=== PATIENT | female | born 1955 | race African-American/Black ===

== ENCOUNTER → 2018-10-17 | Outpatient (CLI) | payer MEDICARE ==
--- NOTE | 2018-10-19 11:26 | MM ---
Reason for exam: screening (asymptomatic). Last mammogram was performed 2 years and 7 months ago. History: Patient is postmenopausal and is nulliparous. Physical Findings: A clinical breast exam by your physician is recommended on an annual basis and results should be correlated with mammographic findings. MG 3D Screening Mammo W/Cad Bilateral CC and MLO view(s) were taken. Prior study comparison: March 10, 2016, bilateral MG screening mammo w CAD. October 31, 2008, bilateral digital screening mammogram. There are scattered fibroglandular densities. There is chronic nodularity bilaterally. No significant changes when compared with prior studies. ASSESSMENT: Benign, BI-RAD 2 RECOMMENDATION: Routine screening mammogram of both breasts in 1 year.
== END | disposition home or self-care (01) ==
LOC: RADMAMWWP 14:58
PROVIDERS: ATTEND Family Medicine
DX: Z12.31 Encounter for screening mammogram for malignant neoplasm of breast (principal)
CPT/HCPCS: 77063; 77067

== ENCOUNTER 2019-01-16 09:12 | Observation (INO) | payer MEDICARE ==
--- NOTE | 2019-01-16 09:30 | ED ---
General Adult HPI - General Chief complaint: Neuro Symptoms/Deficit Stated complaint: neuro consult Time Seen by Provider: 01/16/19 09:18 Source: patient, EMS, RN notes reviewed, old records reviewed (Reviewed reports including computed tomography scan and full report from the [facility].) Mode of arrival: EMS Limitations: no limitations - History of Present Illness Initial comments: Patient is a pleasant 63-year-old female presenting to the emergency Department as a transfer from [facility]. Patient had slurred speech and problems with expressive aphasia this morning. Symptoms have near resolved and patient states she is close to normal at this point. Patient was well when she went to bed last night. No history of similar symptoms previously. denies any confusion. No weakness of her arms or legs. No difficulty walking. Kassandra did have computed tomography scan and full evaluation at [facility] and was transferred here secondary to not having neurology. - Related Data Allergies Allergy/AdvReac Type Severity Reaction Status Date / Time Penicillins Allergy Swelling Verified 01/16/19 09:26 Sulfa (Sulfonamide Allergy Anaphylaxis Verified 01/16/19 09:26 Antibiotics) Review of Systems ROS Statement: Those systems with pertinent positive or pertinent negative responses have been documented in the HPI. ROS Other: All systems not noted in ROS Statement are negative. Constitutional: Denies: fever Eyes: Denies: eye pain ENT: Denies: ear pain Respiratory: Denies: cough Cardiovascular: Denies: chest pain Endocrine: Denies: fatigue Gastrointestinal: Denies: abdominal pain Genitourinary: Denies: dysuria Musculoskeletal: Denies: back pain Skin: Denies: rash Neurological: Denies: headache, weakness, numbness, paresthesias, confusion, abnormal gait Past Medical History Past Medical History: Hypertension Additional Past Medical History / Comment(s): heart mur mur History of Any Multi-Drug Resistant Organisms: None Reported Past Surgical History: No Surgical Hx Reported Past Psychological History: No Psychological Hx Reported Smoking Status: Never smoker Past Alcohol Use History: None Reported Past Drug Use History: None Reported General Exam Limitations: no limitations General appearance: alert, in no apparent distress Head exam: Present: normocephalic Eye exam: Present: normal appearance, PERRL, EOMI. Absent: nystagmus ENT exam: Present: normal oropharynx Neck exam: Present: normal inspection Respiratory exam: Present: normal lung sounds bilaterally Cardiovascular Exam: Present: regular rate, normal rhythm, systolic murmur (Mild) GI/Abdominal exam: Present: soft. Absent: tenderness Extremities exam: Present: normal inspection Neurological exam: Present: alert, oriented X3, CN II-XII intact. Absent: motor sensory deficit Expanded Neurological exam: Present: protecting the airway Patient oriented to: Present: person, place, time Speech: Present: fluid speech Cranial nerves: EOM's Intact: Normal, Nystagmus: Normal Sensory exam: Upper Extremity Light Touch: Normal, Lower Extremity Light Touch: Normal Motor strength exam: RUE: 5, LUE: 5, RLE: 5, LLE: 5 Eye Response: (4) open spontaneously Motor Response: (6) obeys commands Verbal Response: (5) oriented Psychiatric exam: Present: normal affect, normal mood Skin exam: Present: normal color Course Vital Signs 01/16/19 09:16 Temperature 99 F Pulse Rate 75 Respiratory 18 Rate Blood Pressure 152/96 O2 Sat by Pulse 98 Oximetry Medical Decision Making - Medical Decision Making Case was discussed with Dr. Hightower, who will admit his patient. Patient is aware of plan. Disposition Clinical Impression: Transient cerebral ischemia Disposition: ADMITTED IP TO THIS HOSP Is patient prescribed a controlled substance at d/c from ED?: No Referrals: Evangelista Hightower MD [Primary Care Provider] - 1-2 days Decision Time: 09:44
[2019-01-16] MEDS ORDERED: ASPIRIN 325 MG TAB PO STA (09:44)
[2019-01-16] MEDS: SODIUM CHLORIDE 0.9% 1,000 ML IV SCH (09:56)
[2019-01-16 11:02] VITALS: BMI 27.4
[2019-01-16] MEDS ORDERED: LORazepam 0.5 MG TAB PO ONE (12:00)
--- NOTE | 2019-01-16 15:42 | US ---
EXAMINATION TYPE: US carotid duplex BILAT DATE OF EXAM: 01/16/2019 COMPARISON: NONE CLINICAL HISTORY: 63-year-old female Stenosis. Slurred speech, exam done portable. TECHNIQUE: Carotid duplex ultrasound examination. Indirect Doppler criteria is utilized. FINDINGS: EXAM MEASUREMENTS: RIGHT: Peak Systolic Velocity (PSV) cm/sec ----- Right CCA: 58.1 ----- Right ICA: 59.8 ----- Right ECA: 146.9 ICA/CCA ratio: 1.0 RIGHT: End Diastole cm/sec ----- Right CCA: 18.3 ----- Right ICA: 23.4 ----- Right ECA: 27.8 LEFT: Peak Systolic Velocity (PSV) cm/sec ----- Left CCA: 46.2 ----- Left ICA: 81.9 ----- Left ECA: 85.9 ICA/CCA ratio: 1.8 LEFT: End Diastole cm/sec ----- Left CCA: 13.2 ----- Left ICA: 42.6 ----- Left ECA: 15.5 VERTEBRALS (direction of flow): Right Vertebral: Antegrade Left Vertebral: Antegrade Rhythm: Normal Mechanical Spreader Operator notes: Bilateral intimal thickening, elevated velocity: right proximal ECA, no significan t stenosis. IMPRESSION: No hemodynamically significant stenosis appreciated in either internal carotid artery. Criteria for Assigning % of Stenosis / Diameter reduction (Estimation based on the indirect measurements of the internal carotid artery velocities (ICA PSV). 1. Normal (no stenosis)=ICA PSV < 125 cm/s: ratio < 2.0: ICA EDV<40 cm/s. 2. Less than 50% stenosis=ICA PSV < 125 cm/s: ratio < 2.0: ICA EDV<40 cm/s. 3. 50 to 69% stenosis=ICA PSV of 125 to 230 cm/s: ration 2.0 ? 4.0: ICA EDV 40-100 cm/s. 4. Greater than 70% stenosis to near occlusion= ICA PSV > 230 cm/s: ratio > 4.0: ICA EDV > 100 cm/s. 5. Near occlusion= ICA PSV velocities may be low or undetectable: variable ratio and ICA EDV. 6. Total occlusion=unable to detect flow.
--- NOTE | 2019-01-16 17:26 | MR ---
EXAMINATION TYPE: MR brain wo con DATE OF EXAM: 01/16/2019 COMPARISON: None HISTORY: Slurred speech, confusion Standard multiplanar, multisequence MRI departmental protocol Multiplanar, multisequence images of the brain were acquired. Diffusion weighted imaging was performe d. FINDINGS: There is enlargement of the right sylvian fissure consistent with right temporal lobe atrop hy. There is no mass effect nor midline shift. There is no sign of intracranial hemorrhage. There is some mild gyriform increased signal in the right posterior temporal lobe on the FLAIR images. There i s slight increased signal in the white matter around the lateral ventricles on the FLAIR images. Corpus callosum is intact and sella turcica appears normal. Brainstem is intact. I see no evidence of an acute cortical infarct. IMPRESSION: There is atrophy and encephalomalacia in the right temporal lobe consistent with old or subacute infa rct. No evidence of an acute infarct. Mild white matter signal changes around the lateral ventricles probably due to mild chronic small ves hemalatha ischemia.
--- NOTE | 2019-01-16 17:53 | P.CNNES ---
History of Present Illness Consult date: 01/16/19 Requesting physician: Kilo Carrasco Reason for Consult: TIA Chief complaint: Confusion and language difficulty <1hr History of Present Illness: This is a 63 RH female whose only vascular risk factor is HTN. She was also told to "watch out her cholesterol," but is not any lipid agents. Early this morning, she had an episode of confusion and expressive language difficulty lasting less than an hour. There was no seizure-like activity, tongue biting, bowel/bladder incontinence or post-ictal headache or confusion. She did feel "foggy" after the event. She went to an OSH ER where CT Head was done. She was not deemed an intervention candidate due to rapidly resolving symptoms. She remains neurologically asymptomatic. Patient was transferred to our facility for neurological evaluation. She was started on aspirin. MRI Brain, TTE and carotid duplex have been done. Patient currently denies any neurological symptoms. Review of Systems 14-point ROS performed and as per HPI. Neurologically, patient denies decreased level or loss of consciousness, headache, seizure, head trauma, changes in vision, diplopia, amaurosis, changes in hearing, facial droop, ptosis, vertigo, hearing loss, tinnitus, dysphagia, other focal numbness/weakness not mentioned above, tremors, bowel/bladder incontinence or ataxia. Past Medical History Past Medical History: Hypertension Additional Past Medical History / Comment(s): heart mur mur History of Any Multi-Drug Resistant Organisms: None Reported Past Surgical History: No Surgical Hx Reported Past Psychological History: No Psychological Hx Reported Smoking Status: Never smoker Past Alcohol Use History: None Reported Past Drug Use History: None Reported Medications and Allergies Home Medications Medication Instructions Recorded Confirmed Type Hydrochlorothiazide [Hydrodiuril] 12.5 - 25 mg PO DAILY 01/16/19 01/16/19 History Loviral 1 tab PO DAILY 01/16/19 01/16/19 History [place]-3 Fatty Acids/Fish Oil [Fish 1 cap PO DAILY 01/16/19 01/16/19 History Oil 1,000 mg Softgel] Turmeric Root Extract [Turmeric] 500 mg PO DAILY 01/16/19 01/16/19 History Vit C/E/Zn/Coppr/Lutein/Zeaxan 2 cap PO DAILY 01/16/19 01/16/19 History [Preservision Areds 2 Softgel] Allergies Allergy/AdvReac Type Severity Reaction Status Date / Time Penicillins Allergy Swelling Verified 01/16/19 10:03 Sulfa (Sulfonamide Allergy Anaphylaxis Verified 01/16/19 10:03 Antibiotics) Physical Examination - Vital Signs Vital Signs: Vital Signs Temp Pulse Pulse Resp BP BP Pulse Ox 01/16/19 16:46 98.1 F 77 16 148/89 98 01/16/19 14:47 98.0 F 79 16 157/101 98 01/16/19 14:46 98.0 F 79 16 157/101 98 01/16/19 11:16 98.2 F 70 16 143/99 99 01/16/19 10:46 98.2 F 70 16 143/99 99 01/16/19 09:58 98.4 F 74 19 150/99 96 01/16/19 09:16 99 F 75 18 152/96 98 Intake and Output 01/16/19 01/16/19 01/16/19 06:59 14:59 22:59 Intake Total 240 222 Output Total 300 600 Balance -60 -378 Intake: Oral 240 222 Output: Urine 300 600 Other: Weight 79.379 kg Gen NAD Pleasant and cooperative HEENT NCAT Sclera without icterus O/P clear Neck Supple No carotid bruit Cor RRR no m/r/g Lungs CTAB Abd Soft NTND +BS Ext Warm to touch No edema Neuro MS A+Ox4 Normal fluency Able to follow all commands CN PERRL VFF no APD EOMI no nystagmus or DAVID No facial asymmetry Masseter's symmetric Hearing intact to normal voice bilaterally Speech not dysarthric Equal elevation of palate Tongue midline Sym shrug and SCM bilaterally Motor Normal bulk/tone No pronator or leg drift or tremors Strength 5/5 sym throughout Sens Intact to LT x4 No neglect or extinction Coord No dysmetria on FTN bilaterally DTRs 2+/4 sym throughout Toes downgoing bilaterally No clonus at achilles Gait Deferred NIHSS 0 Results - Diagnostic Findings Additional findings: MRI Brain wo kamila 01/16/19. There is evidence of atrophy and encephalomalacia in the right temporal lobe consistent with an old or subacute ischemic infarct. No evidence of an acute ischemic infarct. Mild white matter signal changes around the lateral ventricles likely due to mild chronic small vessel ischemic disease. Carotid duplex 01/16/19. No anterior circulation stenosis or LVO. TTE 01/16/19. Done. Results pending. I have reviewed neuroimages myself. Assessment and Plan Assessment: Episode of confusion and expressive aphasia, resolved. DDx TIA vs complex partial seizure given encephalomalacia seen in the right temporal lobe. Plan: -MRI Brain and carotid duplex results d/w patient in detail -TTE results pending -ASA 81mg po qd -Statin if LDL >70 -Goals BP <130/80 and hga1c <7.0 -EEG given episode of confusion and right temporal encephalomalacia -PT/OT/SP per protocol -Stroke education given to patient -Will need outpatient neuro follow-up -DVT prophylaxis: Heparin SC -d/w patient in detail. All questions answered. Thank you for this consultation. Please call with ?. Time with Patient: Greater than 30 (Time spent in direct patient care, greater than 50% of which was spent in [id number] counseling and coordination of care: 70 minutes.)
[2019-01-17] MEDS: SODIUM CHLORIDE 0.9% 1,000 ML IV SCH (05:21)
[2019-01-17 07:01] LABS: Cholesterol 210 mg/dL (<200); HDL Cholesterol 91 mg/dL (40-60); LDL Cholesterol,Calculated 103 mg/dL (0-99); Triglycerides 79 mg/dL (<150)
[2019-01-17] MEDS ORDERED: ASPIRIN 81 MG PO SCH (09:00)
[2019-01-17] MEDS ORDERED: HYDROCHLOROTHIAZIDE 25 MG TAB PO SCH (09:00)
[2019-01-17] MEDS ORDERED: ASPIRIN 325 MG TAB PO SCH (09:46)
[2019-01-17 10:35] VITALS: RESP 18
--- NOTE | 2019-01-17 12:19 | ECHOF ---
Referral Reason:Thrombus MEASUREMENTS -------- HEIGHT: 170.2 cm WEIGHT: 79.4 kg BP: 152/96 RVIDd: 2.8 cm (< 3.3) IVSd: 1.2 cm (0.6 - 1.1) LVIDd: 4.0 cm (3.9 - 5.3) LVPWd: 1.1 cm (0.6 - 1.1) IVSs: 1.4 cm LVIDs: 2.8 cm LVPWs: 1.7 cm LA Diam: 3.9 cm (2.7 - 3.8) LAESV Index (A-L): 42.39 ml/m Ao Diam: 3.1 cm (2.0 - 3.7) AV Cusp: 1.9 cm (1.5 - 2.6) MV EXCURSION: 17.007 mm (> 18.000) MV EF SLOPE: 118 mm/s (70 - 150) EPSS: 0.3 cm MV E Jefferson: 0.78 m/s MV DecT: 277 ms MV A Jefferson: 0.92 m/s MV E/A Ratio: 0.85 AV maxP.60 mmHg AV maxP.60 mmHg AV meanP.05 mmHg RAP: 5.00 mmHg RVSP: 28.30 mmHg FINDINGS -------- Sinus rhythm. This was a technically good study. The left ventricular size is normal. There is borderline concentric left ventricular hypertrophy. Overall left ventricular systolic function is normal with, an EF between 60 - 65 %. The right ventricle is normal in size. LA is severely dilated >40 ml/m2 The right atrium is normal in size. Aneurysmal Interatrial septum. There is mild aortic valve sclerosis. Peak/mean gradient across the Aortic Valve is 13.60mmHg / 5.0 5mmHg. Wjtp-sj-[id number] mitral regurgitation is present. Smdr-qe-gtbdvlqx tricuspid regurgitation present. Right ventricular systolic pressure is normal at < 35 mmHg. Trace/mild (physiologic) pulmonic regurgitation. The aortic root size is normal. Normal inferior vena cava with normal inspiratory collapse consistent with estimated right atrial pre ssure of 5 mmHg. The inferior vena cava is mildly dilated. There is no pericardial effusion. CONCLUSIONS -------- 1. Sinus rhythm. 2. This was a technically good study. 3. The left ventricular size is normal. 4. There is borderline concentric left ventricular hypertrophy. 5. Overall left ventricular systolic function is normal with, an EF between 60 - 65 %. 6. The right ventricle is normal in size. 7. LA is severely dilated >40 ml/m2 8. The right atrium is normal in size. 9. Aneurysmal Interatrial septum. 10. There is mild aortic valve sclerosis. 11. Peak/mean gradient across the Aortic Valve is 13.60mmHg / 5.05mmHg. 12. Pooo-un-jnevhedq mitral regurgitation is present. 13. Fvjh-ez-vcspgogy tricuspid regurgitation present. 14. Right ventricular systolic pressure is normal at < 35 mmHg. 15. Trace/mild (physiologic) pulmonic regurgitation. 16. The aortic root size is normal. 17. Normal inferior vena cava with normal inspiratory collapse consistent with estimated right atrial pressure of 5 mmHg. 18. The inferior vena cava is mildly dilated. 19. There is no pericardial effusion. GROUP HOME SUPERVISOR: Aleyda Ivan RDCS
[2019-01-17 14:43] VITALS: BP 155/93; PULSE 74; TEMP 97.9
--- NOTE | 2019-01-17 15:07 | P.PN ---
Subjective Progress Note Date: 01/17/19 Principal diagnosis: CVA MRI Brain. EEG. Carotid duplex. TTE. No acute events O/N. Patient without new neuro c/o. Objective - Vital Signs Vital signs: Vital Signs Temp 97.9 F 01/17/19 12:00 Pulse 74 01/17/19 12:00 Resp 18 01/17/19 12:00 BP 155/93 01/17/19 12:00 Pulse Ox 98 01/17/19 12:00 Intake & Output 01/16/19 01/17/19 01/17/19 18:59 06:59 18:59 Intake Total 462 822 600 Output Total 900 600 Balance -438 822 0 Weight 79.379 kg 78.2 kg Intake: Intake, IV Titration 600 Amount Sodium Chloride 0.9% 1, 600 000 ml @ 100 mls/hr IV . Q10H [facility] Rx#:[id number] Oral 462 222 600 Output: Urine 900 600 Other: Voiding Method Toilet Toilet # Voids 2 - Exam Gen NAD Pleasant and cooperative MS A+Ox4 Normal speech CN II-XII grossly intact no nystagmus Motor Normal bulk/tone No drift or tremors LOZADA x4 Sens Intact to LT x4 Coord No dysmetria on FTN bilaterally DTRs 2+/4 sym throughout Gait Deferred NIHSS 0 - Labs Labs: Abnormal Lab Results - Last 24 Hours (Table) 01/17/19 Range/Units 05:56 Cholesterol 210 H (<200) mg/dL LDL Cholesterol, Calc 103 H (0-99) mg/dL HDL Cholesterol 91 H (40-60) mg/dL - Imaging and Cardiology MRI Brain- subacute to chronic right temporal ischemic infarct with encephalomalacia Carotid duplex- No BICA stenosis TTE- LV size normal. Borderline concentric LVH. EF 60-65%. LA severely dilated. Aneurysmal interatrial septum. EEG- Normal awake/drowsy Assessment and Plan Assessment: Episode of confusion and expressive aphasia, resolved. Evidence of right temporal subacute to chronic ischemic infarct. EEG normal. Concerned about proximal embolic phenomenon especially since she does not have many suboptimally controlled vascular risk factors. Plan: -MRI Brain, carotid duplex, TTE and EEG results d/w patient in detail -ASA 81mg po qd -Statin therapy with goals LDL <70 -Goals BP <130/80 and hga1c <7.0 -No indication for AED therapy at this time -PT/OT/SP per protocol -Will need outpatient neuro follow-up. Primary team please make referral. -Will also need outpatient cardiology follow-up for consideration of extended cardiac event monitor to r/o PAF given severe LAE. She previously saw cardiology for evaluation of a murmur. -DVT prophylaxis: Heparin SC -d/w patient in detail. All questions answered. -Stable for discharge from inpatient neuro standpoint. Please call with ?. Thank you again for this consultation. Time with Patient: Greater than 30 (Time spent in direct patient care, greater than 50% of which was spent in txvl-ow-[id number] counseling and coordination of care: 35 minutes.)
--- NOTE | 2019-01-17 15:42 | P.HPIM ---
History of Present Illness H&P Date: 01/17/19 Chief Complaint: Change in LOC, neuro symptoms This is a 63-year-old female transferred from [facility] for neurology evaluation , presenting with confusion, expressive aphasia, slurred speech in a patient with history of hypertension, heart murmur. Reports it occurred upon awakening yesterday morning, felt like she was in "a fog "and was confused in attempting to do daily ADLs such as buttoning her shirt, lasting approximately one hour. Denied syncope or incontinence. Denied limb weakness. Upon arrival to the ER symptoms had nearly resolved. Brain CT at [facility] reported as negative, currently unavailable. Neurology consulted. Carotid Doppler reported no hemodynamically significant stenosis. MRI reported old first a subacute ischemic infarct/ right temporal lobe encephalomalacia, no acute infarct. EEG pending. No neuro symptoms this morning. Confusion, slurred speech, expressive aphasia resolved. Echo reporting borderline concentric left ventricular hypertrophy, EF 60-65%, severely dilated LA, aneurysmal interatrial septum, mild to moderate mitral regurgitation, qtpm-kh-[id number] tricuspid regurgitation. Denies chest pain, palpitations or shortness of breath. Denies lightheadedness dizziness or focal deficits. Denies nausea, vomiting, abdominal/back pain. Review of Systems ROS Statement: Those systems with pertinent positive or pertinent negative responses have been documented in the HPI. ROS Other: All systems not noted in ROS Statement are negative. Past Medical History Past Medical History: Hypertension Additional Past Medical History / Comment(s): heart mur mur History of Any Multi-Drug Resistant Organisms: None Reported Past Surgical History: No Surgical Hx Reported Past Psychological History: No Psychological Hx Reported Smoking Status: Never smoker Past Alcohol Use History: None Reported Past Drug Use History: None Reported Medications and Allergies Home Medications Medication Instructions Recorded Confirmed Type Loviral 1 tab PO DAILY 01/16/19 01/16/19 History [place]-3 Fatty Acids/Fish Oil [Fish 1 cap PO DAILY 01/16/19 01/16/19 History Oil 1,000 mg Softgel] Turmeric Root Extract [Turmeric] 500 mg PO DAILY 01/16/19 01/16/19 History Vit C/E/Zn/Coppr/Lutein/Zeaxan 2 cap PO DAILY 01/16/19 01/16/19 History [Preservision Areds 2 Softgel] Aspirin EC [Ecotrin Low Dose] 81 mg PO DAILY #30 tablet. 01/17/19 Rx Atorvastatin Calcium [Lipitor] 20 mg PO HS #30 tab 01/17/19 Rx Hydrochlorothiazide [Hydrodiuril] 25 mg PO DAILY #0 01/17/19 01/16/19 Rx Allergies Allergy/AdvReac Type Severity Reaction Status Date / Time Penicillins Allergy Swelling Verified 01/16/19 10:03 Sulfa (Sulfonamide Allergy Anaphylaxis Verified 01/16/19 10:03 Antibiotics) Physical Exam Vitals: Vital Signs Temp Pulse Pulse Resp BP BP Pulse Ox 01/17/19 12:00 97.9 F 74 18 155/93 98 01/17/19 08:46 98.0 F 82 18 137/89 97 01/17/19 08:00 82 18 01/17/19 04:46 97.4 F L 66 16 133/67 99 01/17/19 04:00 97.6 F 66 18 130/83 99 01/17/19 00:46 98.0 F 62 18 143/88 98 01/16/19 23:24 98.5 F 65 17 148/97 97 01/16/19 22:46 98.5 F 65 17 148/97 97 01/16/19 20:46 98.7 F 77 18 141/87 98 01/16/19 20:00 98.7 F 77 18 141/87 98 01/16/19 18:46 97.9 F 76 16 152/82 97 01/16/19 16:46 98.1 F 77 16 148/89 98 Intake and Output 01/17/19 01/17/19 01/17/19 06:59 14:59 22:59 Intake Total 600 600 Output Total 600 Balance 600 0 Intake: Intake, IV Titration 600 Amount Sodium Chloride 0.9% 1, 600 000 ml @ 100 mls/hr IV . Q10H [facility] Rx#:[id number] Oral 600 Output: Urine 600 Other: Voiding Method Toilet Toilet # Voids 2 Weight 78.2 kg PHYSICAL EXAM: VITAL SIGNS: As above GENERAL: Sitting up in bed, no acute distress, appears agitated HEENT: Conjunctivae normal. eyes normal. Oral mucosa moist. NECK: No JVD. No thyroid enlargement. No LNs CARDIOVASCULAR: S1, S2 regular. Systolic murmur RESPIRATION: Breath sounds diminished in the bases. No rhonchi or crackles. No bronchial breathing. ABDOMEN: Soft, nontender . No guarding. no masses palpable. No ascites, No hepatosplenomegaly.Bowel sounds heard. LEGS: No edema. no swelling PSYCHIATRY: Alert and oriented X3, mood and affect normal. NERVOUS SYSTEM: Cranial N 2-12 grossly normal. Moves all 4 limbs. No focal deficits. No facial asymmetry ,No nystagmus No facial droop, Speech fluent and appropriate, Strength and sensation grossly intact. Skin: no lesions, no rash Lymphatic system. No LN neck axilla or groin. Results Labs: Abnormal Lab Results - Last 24 Hours (Table) 01/17/19 Range/Units 05:56 Cholesterol 210 H (<200) mg/dL LDL Cholesterol, Calc 103 H (0-99) mg/dL HDL Cholesterol 91 H (40-60) mg/dL Thrombosis Risk Factor Assmnt - Choose All That Apply Each Risk Factor Represents 2 Points: Age 61-74 years Thrombosis Risk Factor Assessment Total Risk Factor Score: 2 Thrombosis Risk Factor Assessment Level: Low Risk Assessment and Plan Assessment: -TIA, rule out possible seizure. MRI reporting encephalomalacia right temporal lobe, old or subacute infarct, no acute infarct. -Hypertension -Severely dilated LA, outpatient cardiology F/U -Aneurysmal interatrial septum - Mild to moderate mitral and tricuspid regurgitation Plan: Continue on current medication regime ,monitoring and symptomatic treatment. Home meds have been reviewed and resumed. Evaluated by neurology, neuro workup in progress. Pending neurology clearance with final recomme ndations, patient may be discharged home in a stable condition with guarded prognosis. Patient to follow-up with cardiology outpatient. The impression and plan of care has been dictated as directed. : I performed a history and examination of this patient, discussed the same with the dictator. I agree with the dictator's note ,documented as a scribe. Any additional findings or plans will be noted. Time taken: 35 minutes
--- NOTE | 2019-01-17 16:41 | EEG ---
ELECTROENCEPHALOGRAM REPORT DATE OF SERVICE: 01/17/2019 CLINICAL HISTORY: This is a 63 -year-old female who presented with an episode of confusion, facial weakness and difficulty with hand coordination. The imaging subsequently reviewed right temporal lobe infarct with encephalomalacia. Electroencephalogram is performed to rule out epileptiform activity. MEDICATIONS: Aspirin 81 mg daily, hydrochlorothiazide. TYPE OF RECORDING: Bedside tracing using the 10-20 international electrode placement system. No sedation was given prior to the beginning of this recording. EEG FINDINGS: The background tracing is seen with an alpha rhythm that attenuates on eye opening and returns upon eye closure. Photic stimulation elicits a symmetric driving response. Hyperventilation was not performed in this recording. As the tracing progresses, there is progressive slowing of the background into the theta range. Definite sleep architecture is not seen. There is no background asymmetry or epileptiform patterns appreciated. IMPRESSION: This is a normal awake/drowsy electroencephalogram without background asymmetry or epileptiform discharges. Clinical correlation is advised. MARY / KYLE: [id number] / MTDD
== END 2019-01-17 17:19 | disposition home or self-care (01) ==
LOC: EC 09:12 → 3SCARD 09:44
PROVIDERS: ADMIT Family Medicine; ATTEND Family Medicine
DX: G45.9 Transient cerebral ischemic attack, unspecified (principal); I25.3 Aneurysm of heart; I11.9 Hypertensive heart disease without heart failure; G93.89 Other specified disorders of brain; I08.1 Rheumatic disorders of both mitral and tricuspid valves; Z88.0 Allergy status to penicillin; Z88.2 Allergy status to sulfonamides; Z86.73 Personal history of transient ischemic attack (TIA), and cerebral infarction without residual deficits
CPT/HCPCS: 96360; 99285; 95816; 93306; 97165; 92523; 80061; 93880; 70551; G0378 ×2

== ENCOUNTER 2019-10-31 02:28 | Emergency (ER) | payer MEDICARE, OTHER ==
[2019-10-31 02:36] VITALS: BP 162/87; PULSE 97; RESP 20; TEMP 98.5
[2019-10-31] MEDS ORDERED: predniSONE 20 MG TAB PO STA (02:56)
[2019-10-31] MEDS ORDERED: PSEUDOEPHEDRINE 30 MG TAB PO STA (02:57)
--- NOTE | 2019-10-31 02:59 | ED ---
ENT HPI - General Chief complaint: ENT Stated complaint: Ear Pain/burning Time Seen by Provider: 10/31/19 02:33 Source: patient Mode of arrival: ambulatory Limitations: no limitations - History of Present Illness Initial comments: This patient is a 64-year-old woman who states she has history of ALLERGIES and sinusitis related to this. She states that for the past approximately 3-4 weeks she has been having symptoms consistent with her usual spring flareup. She describes having sinus congestion and drainage as well as pressure. She states she has been having bilateral ear pressure and some burning in her throat. She had seen her physician and had a course of azithromycin and then following that had been put on Claritin and nasal fluticasone. She states that the symptoms continue. She is going to have ENT follow-up in early November. The patient has not had any fever or chills. No purulent sputum. There has been no change in her hearing. No drainage. MD complaint: ear pain -: week(s) Location: R ear, L ear Severity: moderate Quality: burning, dull Consistency: intermittent (Worse in the morning) Improves with: none Worsens with: none - Related Data Home Medications Medication Instructions Recorded Confirmed Loviral 1 tab PO DAILY 01/16/19 01/16/19 [place]-3 Fatty Acids/Fish Oil [Fish 1 cap PO DAILY 01/16/19 01/16/19 Oil 1,000 mg Softgel] Turmeric Root Extract [Turmeric] 500 mg PO DAILY 01/16/19 01/16/19 Vit C/E/Zn/Coppr/Lutein/Zeaxan 2 cap PO DAILY 01/16/19 01/16/19 [Preservision Areds 2 Softgel] Previous Rx's Medication Instructions Recorded Aspirin EC [Ecotrin Low Dose] 81 mg PO DAILY #30 tablet. 01/17/19 Atorvastatin Calcium [Lipitor] 20 mg PO HS #30 tab 01/17/19 Hydrochlorothiazide [Hydrodiuril] 25 mg PO DAILY #0 01/17/19 Pseudoephedrine 12Hr [Sudafed 12 120 mg PO Q12H #14 tablet.er 10/31/19 Hour] predniSONE 60 mg PO DAILY #30 tab 10/31/19 Allergies Allergy/AdvReac Type Severity Reaction Status Date / Time Penicillins Allergy Swelling Verified 10/31/19 02:36 Sulfa (Sulfonamide Allergy Anaphylaxis Verified 10/31/19 02:36 Antibiotics) Review of Systems ROS Statement: Those systems with pertinent positive or pertinent negative responses have been documented in the HPI. ROS Other: All systems not noted in ROS Statement are negative. Constitutional: Denies: fever, chills ENT: Reports: ear pain, congestion. Denies: hearing loss Respiratory: Denies: cough Cardiovascular: Denies: chest pain, palpitations Gastrointestinal: Denies: abdominal pain, vomiting Skin: Denies: rash Neurological: Denies: headache Past Medical History Past Medical History: Hypertension Additional Past Medical History / Comment(s): heart murmur, vertigo History of Any Multi-Drug Resistant Organisms: None Reported Past Surgical History: No Surgical Hx Reported Past Psychological History: No Psychological Hx Reported Smoking Status: Never smoker Past Alcohol Use History: None Reported Past Drug Use History: None Reported General Exam Limitations: no limitations General appearance: alert, in no apparent distress Head exam: Present: atraumatic, normocephalic Eye exam: Present: normal appearance. Absent: scleral icterus, conjunctival injection ENT exam: Present: normal oropharynx, mucous membranes moist, normal external ear exam, other (Right ear has clear effusion. No dullness, erythema, bulging or exam finding consistent with infection. No tenderness.) Neck exam: Present: normal inspection, full ROM. Absent: tenderness, meningismus, lymphadenopathy Respiratory exam: Present: normal lung sounds bilaterally. Absent: respiratory distress, wheezes, rales, rhonchi, stridor Cardiovascular Exam: Present: regular rate, normal rhythm, normal heart sounds. Absent: systolic murmur, diastolic murmur, rubs, gallop Neurological exam: Present: alert Course Vital Signs 10/31/19 02:29 Temperature 98.5 F Pulse Rate 97 Respiratory 20 Rate Blood Pressure 162/87 O2 Sat by Pulse 98 Oximetry Medical Decision Making - Medical Decision Making Patient is 64-year-old woman presenting with symptoms consistent with her annual ALLERGY flare. There is right ear effusion and the right ears having more symptoms than the left, consistent with this. Will give brief course of steroid. Patient does have follow-up with ENT already scheduled. Discussed appropriate follow-up and further care as well as return parameters. Disposition Clinical Impression: Middle ear effusion Disposition: HOME SELF-CARE Condition: Good Instructions (If sedation given, give patient instructions): Earache (ED) Prescriptions: predniSONE 60 mg PO DAILY #30 tab Pseudoephedrine 12Hr [Sudafed 12 Hour] 120 mg PO Q12H #14 tablet.er Is patient prescribed a controlled substance at d/c from ED?: No Referrals: Evangelista Hightower MD [Primary Care Provider] - 1-2 days
== END 2019-10-31 03:29 | disposition home or self-care (01) ==
LOC: EC 02:28
DX: H74.8X1 Other specified disorders of right middle ear and mastoid (principal); H92.02 Otalgia, left ear; I10 Essential (primary) hypertension; Z88.0 Allergy status to penicillin; Z88.2 Allergy status to sulfonamides
CPT/HCPCS: 99283; J7512

== ENCOUNTER → 2019-12-05 | Outpatient (CLI) | payer MEDICARE ==
--- NOTE | 2019-12-05 14:35 | CT ---
EXAMINATION TYPE: CT iac wo con DATE OF EXAM: 12/05/2019 COMPARISON: MRI brain January 16, 2019 HISTORY: Ear pain, vertigo, mastoiditis all per order. Additional symptoms of headache and dizziness for patient. CT DLP: 278.1 mGycm. Automated Exposure Control for Dose Reduction was Utilized. TECHNIQUE: CT scan of internal auditory canal is performed without contrast, thin cut axial images ar e obtained, coronal reformatted images are also reviewed. FINDINGS: The external auditory canals are patent bilaterally. Mastoid air cells show no evidence of abnormal opacification bilaterally. The middle ear ossicles are symmetric and unremarkable. There is no evidence of suspicious surrounding soft tissue density to suggest cholesteatoma. The scutum is preserved bilaterally. The cochlea and the semicircular canals are symmetric. Superior turn of the right-sided semicircular canal does not show definitive bony covering coronal image 86 series 203. V estibular aqueduct and internal carotid canal appear unremarkable. Temporomandibular joints are maintained bilaterally. Visualized paranasal sinuses are grossly clear. Visualized portion brain parenchyma is felt within normal limits. IMPRESSION: Cannot exclude right-sided superior canal dehiscence syndrome otherwise unremarkable mihir nowak
== END | disposition home or self-care (01) ==
LOC: RADCTMAIN 12:56
PROVIDERS: ATTEND Otolaryngology
DX: H92.09 Otalgia, unspecified ear (principal)
CPT/HCPCS: 70480

== ENCOUNTER → 2019-12-12 | Outpatient (CLI) | payer MEDICARE ==
--- NOTE | 2019-12-12 08:45 | XR ---
EXAMINATION TYPE: XR knee complete RT DATE OF EXAM: 12/12/2019 CLINICAL HISTORY: pain TECHNIQUE: Three views of the right knee are obtained. COMPARISON: None. FINDINGS: There is no acute fracture/dislocation. The tri-compartment joint spaces appear moderatel y to severely narrowed primarily involving the medial and lateral tibiofemoral joint spaces and to a lesser extent the patellofemoral joint space. There is associated spur formation. Also patellar joint effusion identified. The overlying soft tissue appears unremarkable. IMPRESSION: There is no acute fracture or dislocation. ICD 10 NO FRACTURE, INITIAL EVALUATION
== END | disposition home or self-care (01) ==
LOC: RADXRMAIN 08:12
PROVIDERS: ATTEND Family Medicine
DX: M25.561 Pain in right knee (principal)

== ENCOUNTER → 2020-03-11 | Outpatient (CLI) | payer MEDICARE ==
--- NOTE | 2020-03-12 09:20 | MM ---
Reason for exam: screening (asymptomatic). Last mammogram was performed 1 year and 5 months ago. History: Patient is postmenopausal and is nulliparous. Physical Findings: A clinical breast exam by your physician is recommended on an annual basis and results should be correlated with mammographic findings. MG 3D Screening Mammo W/Cad Bilateral CC and MLO view(s) were taken. Prior study comparison: October 17, 2018, bilateral MG 3d screening mammo w/cad. March 10, 2016, bilateral MG screening mammo w CAD. The breast tissue is heterogeneously dense. This may lower the sensitivity of mammography. There is chronic nodularity in the right breast. No significant changes when compared with prior studies. ASSESSMENT: Benign, BI-RAD 2 RECOMMENDATION: Routine screening mammogram of both breasts in 1 year.
== END | disposition home or self-care (01) ==
LOC: RADMAMWWP 10:21
PROVIDERS: ATTEND Nurse Practitioner Family
DX: Z12.31 Encounter for screening mammogram for malignant neoplasm of breast (principal); Z80.3 Family history of malignant neoplasm of breast
CPT/HCPCS: 77063; 77067

== ENCOUNTER 2020-09-12 10:07 | Day surgery (SDC) | payer MEDICARE ==
[2020-09-09 09:18] VITALS: BMI 26.2
[~2020-09-12 10:07] MED LIST: LACTATED RINGERS 1,000 ML IV SCH
[2020-09-12 10:51] VITALS: TEMP 97.6
[2020-09-12] MEDS ORDERED: LIDOCAINE 1% (10MG/ML) FOR IV START INTRADERMA ONE (11:01)
[2020-09-12] MEDS ORDERED: PROPOFOL 10 MG/ML 20 ML VIAL IV ONE (11:29)
[2020-09-12] MEDS ORDERED: LIDOCAINE 1% INJ 10MG/ML (20 ML MDV) ONE (11:29)
--- NOTE | 2020-09-12 11:39 | P.PCN ---
Date of Procedure: 09/12/20 Procedure(s) Performed: BRIEF HISTORY: Patient is a 65-year-old, pleasant, female scheduled for an upper endoscopy as a part of evaluation of long-standing history of GERD of almost 1 year duration. She has been on Protonix 40 mg daily as well as Pepcid at bedtime with no help. Recently the Protonix was increased to 40 mg twice daily and she is scheduled for an upper endoscopy to rule out complicated reflux. PROCEDURE PERFORMED: Esophagogastroduodenoscopy with biopsy. PREOPERATIVE DIAGNOSIS: GERD with refractory symptoms. IV sedation per anesthesia. PROCEDURE: After informed consent was obtained, the patient was brought into the endoscopy unit. IV sedation was administered by Anesthesia under continuous monitoring. Initially the Olympus GIF-140 video endoscope was inserted into the mouth. Esophagus intubated without any difficulty. It was gradually advanced into the stomach and duodenum and carefully examined. The bulb and the second part of the duodenum appeared normal. The scope at this time was withdrawn to the stomach, adequately insufflated with air, and upon careful examination, mucosa of the antrum mild gastritis and biopsies were done from this area. The, body, cardia and the fundus appeared normal. The scope was then withdrawn into the esophagus. The GE junction was located at 39 cm from the incisors. The esophagus appeared normal. There were no erosions or ulcerations seen, biopsies were done from the distal esophagus and the patient tolerated the procedure well. IMPRESSION: 1. Small hiatal hernia but no evidence of esophagitis or Wilcox's esophagus. 2. Mild antral gastritis. RECOMMENDATIONS: The findings of this examination were discussed with the pat ient as well as her family. She was advised to follow with the biopsy results. She will continue with Protonix 40 mg twice daily and follow antireflux measures. She'll be seen in office in 6 weeks..
[2020-09-12 11:44] VITALS: RESP 17
[2020-09-12 11:59] VITALS: BP 145/92; PULSE 70
== END 2020-09-12 12:19 | disposition home or self-care (01) ==
LOC: ORWHC2ENDO 10:07
PROVIDERS: ATTEND Internal Medicine Gastroenterology
DX: K21.00 Gastro-esophageal reflux disease with esophagitis, without bleeding (principal); K44.9 Diaphragmatic hernia without obstruction or gangrene; K29.50 Unspecified chronic gastritis without bleeding; Z79.82 Long term (current) use of aspirin; Z79.899 Other long term (current) drug therapy; Z88.0 Allergy status to penicillin; Z88.8 Allergy status to other drugs, medicaments and biological substances; Z88.2 Allergy status to sulfonamides
CPT/HCPCS: 88305; 43239; J2001; J2704

== ENCOUNTER → 2021-07-23 | Outpatient (CLI) | payer MEDICARE ==
--- NOTE | 2021-07-27 09:36 | MM ---
Reason for exam: screening (asymptomatic). Last mammogram was performed 1 year and 4 months ago. History: Patient is postmenopausal and is nulliparous. Physical Findings: A clinical breast exam by your physician is recommended on an annual basis and results should be correlated with mammographic findings. MG 3D Screening Mammo W/Cad Bilateral CC and MLO view(s) were taken. Prior study comparison: March 11, 2020, bilateral MG 3d screening mammo w/cad. October 17, 2018, bilateral MG 3d screening mammo w/cad. There are scattered fibroglandular densities. There is chronic nodularity in the right breast. No significant changes when compared with prior studies. ASSESSMENT: Benign, BI-RAD 2 RECOMMENDATION: Routine screening mammogram of both breasts in 1 year.
== END | disposition home or self-care (01) ==
LOC: RADMAMWWP 06:55
PROVIDERS: ATTEND Family Medicine
DX: Z12.31 Encounter for screening mammogram for malignant neoplasm of breast (principal); Z78.0 Asymptomatic menopausal state
CPT/HCPCS: 77063; 77067

== ENCOUNTER → 2024-05-01 | Outpatient (CLI) | payer MEDICARE ==
--- NOTE | 2024-05-01 11:35 | MR ---
EXAMINATION TYPE: MR knee RT wo con DATE OF EXAM: 05/01/2024 COMPARISON: X-ray 04/27/2024 HISTORY: Chronic right knee pain, no trauma. TECHNIQUE: Multiplanar, multisequence imaging of the right knee is performed without IV contrast. FINDINGS: MEDIAL MENISCUS: There is a grade 3 abnormal signal posterior horn medial meniscus compatible linear tear. LATERAL MENISCUS: There is abnormal signal in both the anterior and posterior horn of the lateral men iscus likely on the basis of degenerative tears. There is maceration of the anterior horn likely on t he basis of post arthritic changes. There is pseudo extrusion of the lateral meniscus. CRUCIATE LIGAMENTS: Anterior cruciate ligaments intact. There is some ill definition the ACL likely p ositional with no definite tear seen. A mild strain not excluded correlate with clinical exam. COLLATERAL LIGAMENTS: The medial collateral ligament and lateral collateral ligament complex are inta ct and unremarkable. EXTENSOR MECHANISM: Visualized quadriceps and patellar tendons are intact. EFFUSION: Trace amount of fluid in the suprapatellar bursa. POPLITEAL CYST: No popliteal/miller cyst. TRICOMPARTMENT SPACES: There is moderate to severe narrowing of the medial and lateral compartment an d mild to moderate narrowing of the patellofemoral joint greater along the medial patellar facet. The re is marginal spurring. No erosive changes. Generalized demineralization. There is localized loss of cartilage involving the distal femoral articular cartilage medial and late ral compartment compatible with grade II chondromalacia. Thinning of the patellar cartilage greater a long the lateral patellar facet also noted compatible with chondromalacia. A small fluid-filled cysti c structure posterior to the fibular head along the lateral joint space may be related to small amoun t of fluid in the bursa or tiny ganglion cyst measuring approximately 1 cm. BONE MARROW SIGNAL: Abnormal marrow signal involving the distal tibia and femur at the level of the a rticular surface compatible with marrow edema. Favor reactive marrow edema due to arthritic changes. Area of osteochondritis dissecans involving the posterior lateral femoral condyle not excluded. OTHER: Subcutaneous varicosities incidentally noted. IMPRESSION: 1. Moderate to severe osteoarthritis greatest involving the medial and lateral compartments of the kn ee. Abnormal marrow edema involving the distal lateral femur and proximal tibia at the articular surf shad is most compatible with reactive marrow edema. 2. Linear tear posterior horn medial meniscus. 3. Degenerative lateral tears of the posterior horn and anterior horn of the lateral meniscus with medrano spected maceration of the anterior horn. Finding is likely post arthritic. [facility], , 05/01/2024 11:33 AM
== END | disposition home or self-care (01) ==
LOC: RADMRIMAIN 10:12
PROVIDERS: ATTEND Orthopaedic Surgery

== ENCOUNTER → 2024-05-11 | Outpatient (CLI) | payer MEDICARE ==
[2024-05-11 15:13] LABS: Basophils # (A) 0.03 X 10*3/uL (0.00-0.10); Basophils % (A) 0.6 %; Eosinophils # (A) 0.07 X 10*3/uL (0.04-0.35); Eosinophils % (A) 1.4 %; HCT 35.2 % (37.2-46.3); HGB 11.2 g/dL (12.0-15.0); Immature Grans, Automated 0 %; Lymphocytes # (A) 2.49 X 10*3/uL (0.90-5.00); Lymphocytes % (A) 51.1 %; MCH 28.5 pg (27.0-32.0); MCHC 31.8 g/dL (32.0-37.0); MCV 89.6 FL (80.0-97.0); Mean Platelet Volume 10.6 FL (9.5-12.2); Monocytes # (A) 0.32 X 10*3/uL (0.20-1.00); Monocytes % (A) 6.6 %; NRBC Per 100 WBC 0 X 10*3/uL (0.00-0.01); Neutrophils # (A) 1.96 X 10*3/uL (1.80-7.70); Neutrophils % (A) 40.3 %; Platelet Count 247 X 10*3/uL (140-440); RBC 3.93 X 10*6/uL (4.10-5.20); RDW 13.8 % (11.5-14.5); WBC 4.87 X 10*3/uL (4.50-10.00)
[2024-05-11 15:29] LABS: Anion Gap 10.6 mmol/L (4.00-12.00); Carbon Dioxide 26.4 mmol/L (21.6-31.8)
== END | disposition home or self-care (01) ==
LOC: LABPAT 11:04
PROVIDERS: ATTEND Orthopaedic Surgery
CPT/HCPCS: 36415; 80051; 85025; 93005

== ENCOUNTER 2024-06-07 08:32 | Day surgery (SDC) | payer MEDICARE ==
[2024-06-05 10:43] VITALS: BMI 25.1
--- NOTE | 2024-06-06 20:22 | HP ---
HISTORY AND PHYSICAL DATE OF SURGERY: 06/07/2024. HISTORY OF PRESENT ILLNESS: Yoly Singh is a 68-year-old patient seen with progressive right knee pain. We discussed options regarding treatment. She elected to proceed with right knee arthroscopy. Consent was obtained. PAST MEDICAL HISTORY: Hypertension. PAST SURGICAL HISTORY: Noncontributory. DAILY MEDICATIONS: 1. Hydrochlorothiazide. 2. Tylenol. 3. Klor-Con. ALLERGIES: None. SOCIAL HISTORY: She denies tobacco use. PHYSICAL EVALUATION OF THE RIGHT KNEE: Her range of motion is -1/2 to 110 degrees. Mild effusion. Tenderness along the medial and lateral joint lines. Positive medial Tania's. Positive lateral Tania's. Ligaments stable. Hip rotation is without pain. Distal neurovascular exam is intact. IMAGING STUDIES: Right knee radiographs revealed moderate osteoarthritic changes. MRI of right knee revealed medial and lateral meniscal tears. IMPRESSION: 1. Internal derangement of right knee with medial and lateral meniscal tears. 2. Hypertension. PLAN: Right knee arthroscopy with partial medial/lateral meniscectomy and debridement. MMODL / IJN: [id number] /
[~2024-06-07 08:32] MED LIST changes: +HYDROmorphone 0.5 MG/0.5 ML SYRINGE IVP PRN; -LACTATED RINGERS 1,000 ML IV SCH; +MIDAZOLAM 2 MG/2 ML VIAL IV PRN; +fentaNYL (PF) 50 MCG/ML 2 ML AMP IVP PRN
[2024-06-07] MEDS: IV FLUID CONTINUATION 1,000 ML IV ONE (09:29)
[2024-06-07] MEDS: LACTATED RINGERS 1,000 ML IV SCH (09:29)
[2024-06-07] MEDS: LIDOCAINE 1% (10MG/ML) FOR IV START INTRADERMA PRN (09:30)
[2024-06-07] MEDS: DEXAMETHASONE SOD PHOSPHATE 4 MG/ML 1 ML VIAL IV ONE (09:30)
[2024-06-07] MEDS: ONDANSETRON 4 MG/2 ML VIAL IVP ONE (09:30)
[2024-06-07] MEDS ORDERED: PHENYLEPHRINE-0.9% NACL SYG 1,000 MCG/10 ML SYRINGE ONE (10:04)
[2024-06-07] MEDS ORDERED: SUCCINYLCHOLINE CHLORIDE 200 MG/10 ML VIAL IV ONE (10:04)
[2024-06-07] MEDS ORDERED: ePHEDrine 50 MG/ML 1 ML VIAL ONE (10:04)
[2024-06-07] MEDS ORDERED: LIDOCAINE 1% INJ 10MG/ML (20 ML MDV) ONE (10:04)
[2024-06-07] MEDS ORDERED: fentaNYL (PF) 50 MCG/ML 2 ML AMP ONE (10:04)
[2024-06-07] MEDS ORDERED: KETOROLAC 15 MG/ML 1 ML VIAL ONE (10:04)
[2024-06-07] MEDS ORDERED: MIDAZOLAM 2 MG/2 ML VIAL ONE (10:04)
[2024-06-07] MEDS ORDERED: PROPOFOL 10 MG/ML 20 ML VIAL IV ONE (10:04)
[2024-06-07] MEDS: BUPIVACAINE (PF) 0.25% 30 ML VIAL SQ ONE (10:34)
--- NOTE | 2024-06-07 11:05 | P.OP ---
Date of Procedure: 06/07/24 Preoperative Diagnosis: Internal derangement right knee Postoperative Diagnosis: 1. Tear medial and lateral meniscus right knee 2. Grade IV chondromalacia medial femoral condyle right knee 3. Grade IV chondromalacia lateral tibial plateau right knee 4. Grade IV chondromalacia femoral sulcus right knee 5. Reactive synovitis medial, lateral and suprapatellar compartments right knee okay Procedure(s) Performed: 1. Arthroscopic partial medial and lateral meniscectomy right knee 2. Arthroscopic microfracture medial femoral condyle right knee 3. Arthroscopic microfracture lateral tibial plateau right knee 4. Arthroscopic microfracture femoral sulcus right knee 5. Arthroscopic partial synovectomy medial, lateral and suprapatellar compartments right knee Anesthesia: FRANKLINA, local Surgeon: Sylvester Paul Estimated Blood Loss (ml): 7 Pathology: none sent Condition: stable Disposition: PACU Indications for Procedure: 68-year-old patient seen with progressive right knee pain. After having treatment options discussed, she elected to proceed with arthroscopy. Operative Findings: See description of procedure Description of Procedure: Patient was taken to the operative suite. Patient underwent a general anesthet ic by the department of anesthesia. Patient was given preoperative antibiotics. The right lower extremity was placed in a well-padded arthroscopic leg jamison. The right leg was prepped and draped in the normal sterile orthopedic fashion. A lateral parapatellar and suprapatellar incision was made. Trochars were inserted. Arthroscopy was initiated. Suprapatellar pouch revealed diffuse thick reactive synovitis. The patellofemoral joint appeared to articulate congruently. There was an area of grade IV chondromalacia involving the femoral sulcus measuring about 1.5 x 1.5 cm with exposed bone. The scope was guided into the medial gutter. No loose bodies or plica were identified. The scope was then guided into the medial compartment. A medial parapatellar incision was made. Trocar inserted followed by probe. There was a complex tear involving the posterior horn and mid bodies of the medial meniscus. There was near grade III/IV chondromalacia involving the femoral condyle with some osteochondral flap tears. There was thick reactive synovitis anteriorly. I performed a partial medial meniscectomy getting down to stable meniscal tissue. I performed a chondroplasty of the medial femoral condyle hitting down to stable osteochondral tissue. I performed a partial synovectomy decompressing the thick reactive synovitis. I did note an area of exposed bone along the medial femoral condyle/grade IV chondromalacia measuring about 1.5 x 1 cm. I introduced a microfracture awl and I performed a microfracture to the area of exposed bone penetrating the bone with resultant bleeding at the microfracture site. The residual meniscus was stable. The residual osteochondral surface was stable. There was good decompression of the synovitis. Scope and probe were then guided into the intercondylar notch. Cruciates were identified, probed and found to be stable. The scope and probe were then guided into lateral compartment. There was a complex tear involving the mid body and posterior horn areas of lateral meniscus. There was near grade IV chondromalacia lateral tibial plateau measuring 1.5 x 1.5 cm. There was thick reactive synovitis anteriorly. I performed a partial medial meniscectomy getting down to stable meniscal tissue. I performed a partial synovectomy decompressing the thick reactive synovitis. I had used a microfracture awl and I performed a microfr acture to the area of exposed bone lateral tibial plateau penetrating the bone with resultant bleeding at the microfracture site. The residual meniscus was stable. The residual osteochondral surface was stable. There was good decompression of the synovitis. The scope was in guided back into the suprapatellar compartment. I introduced a motorized shaver into the suprapatellar compartment. I debrided some piecemeal fragments of meniscus I encountered. I performed a partial synovectomy. I performed a chondroplasty of the femoral sulcus. I again noted any of exposed bone. I did use a georgina rofracture awl and I performed a microfracture to the area of exposed bone penetrating the bone with resultant bleeding at the microfracture site. The residual osteochondral surface appeared stable. There was good decompression of the synovitis. I now took 1 more look around the entire knee, no residual debris. Instruments were now removed from the joint. The joint was infiltrated with .25% Marcaine. Steri-Strips were applied to the portal sites. Sterile dressings were applied. The patient was placed into a TERI hose. No tourniquet was utilized. The patient was awakened, transferred to a bed and taken to recovery stable satisfactory condition.
[2024-06-07 11:06] VITALS: TEMP 97
[2024-06-07 12:10] VITALS: RESP 16
[2024-06-07 12:39] VITALS: BP 130/87; PULSE 86
== END 2024-06-07 13:26 | disposition home or self-care (01) ==
LOC: OR 08:32
PROVIDERS: ATTEND Orthopaedic Surgery
DX: S83.271A Complex tear of lateral meniscus, current injury, right knee, initial encounter (principal); S83.231A Complex tear of medial meniscus, current injury, right knee, initial encounter; M94.261 Chondromalacia, right knee; M65.861 Other synovitis and tenosynovitis, right lower leg; I10 Essential (primary) hypertension; Z79.899 Other long term (current) drug therapy; Z88.0 Allergy status to penicillin; Z88.2 Allergy status to sulfonamides; Z88.8 Allergy status to other drugs, medicaments and biological substances
CPT/HCPCS: 29880; 29879; 29876; J2250; J0330; J1100; J0690; J2405; J2003; J3010; J1885; J2704; J2371; J0665